=== PATIENT | female | born 1990 | race American Indian/Alaskan Native ===

== ENCOUNTER 2017-08-01 06:06 | Day surgery (SDC) | payer OTHER ==
[2017-08-01] MEDS ORDERED: cefOXitin IV 1 gm in Dextrose 2 GM/100 ML BAG IVPB ONE (09:02)
[2017-08-01] MEDS ORDERED: Bupivacaine HCl 0.5% PF (30 ml) Inj ONE (09:02)
[2017-08-01] MEDS ORDERED: Midazolam 2 MG/2 ML VIAL ONE (09:06)
[2017-08-01] MEDS ORDERED: Propofol 10 mg/ml Inj (20 ML) ONE (09:09)
[2017-08-01] MEDS ORDERED: Rocuronium 10 mg/ml (5 ml) ONE (09:15)
[2017-08-01] MEDS ORDERED: Neostigmine Methylsulfate 3mg/3ml Syringe IV ONE (09:32)
[2017-08-01] MEDS ORDERED: HYDROmorphone 0.5 mg/0.5 ml ISec IVP PRN (09:39)
[2017-08-01 12:36] VITALS: RESP 16
[2017-08-01 15:36] VITALS: BP 96/56; PULSE 88; TEMP 97.6; O2SAT 100
--- NOTE | 2017-08-02 06:39 | OP ---
PROCEDURE DATE: 08/01/2017 PREOPERATIVE DIAGNOSIS: Ovarian cyst. POSTOPERATIVE DIAGNOSES: Fibroid uterus, bilateral polycystic ovaries. FINDINGS: Bilateral polycystic ovaries and a find of 2 cm myoma, tubes are normal. SURGEON: Dr. Tammy Terry. LOT ATTENDANT: Delfino Caban MD ESTIMATED BLOOD LOSS: Less than 1 mL. COMPLICATIONS: Nil. DESCRIPTION OF PROCEDURE: After the risks, benefits, and alternatives of the planned procedures including, but not limited to infection, hemorrhage, deep vein thrombosis, atelectasis, pneumonia, pulmonary embolism, damage to the bladder, damage to the ureter, renal insufficiency, renal failure, wound infection, wound dehiscence, incisional hernia, keloid formation, damage to the large and small intestine, damage to the inferior vena cava and aorta requiring extensive repair, anesthesia complications, electrolyte imbalance, possibility of , fluid overload, cerebral edema, embolism, and other complications that were discussed but are not listed above have been explained to the patient and all her questions were answered. Informed consent was obtained. The patient was taken to the operating room in a stable condition. Under a suitable level of general anesthesia, she was prepped and draped in a sterile fashion after having been placed in a dorsal lithotomy position. A Morales catheter was inserted. Examination under anesthesia revealed a normal-sized uterus anteverted with no adnexal masses. A weighted speculum was inserted into the vagina. The anterior lip of the cervix was grasped using a single-tooth tenaculum. An endocervical curettage was performed and scant tissue was obtained. The uterus was dilated to a #8 Hanks dilator. An endometrial curettage was performed and scant tissue was obtained. A HUMI catheter was inserted into the cervix and insufflated into place. Through a 1 cm umbilical vertical incision, a pneumoperitoneum of 3 L was created. The Veress needle was removed and replaced by a 5 mm trocar and sleeve. Trocar was removed and replaced by a laparoscope, which confirmed the findings as noted above. A 5 mm puncture site was made 3 fingerbreadths above the pubic symphysis through which a 5 mm trocar and sleeve were inserted. Trocar was removed and replaced by Endo Cristian scissors, which was used to resect the fundal myoma, which was submitted for Pathology. At the end of the procedure, peritoneal cavity was irrigated using copious amounts of saline. The saline was evacuated. The suprapubic sleeve was removed under laparoscopic guidance. Abdomen was deflated with carbon dioxide and the umbilical sleeve was removed under laparoscopic guidance. The skin incisions were then closed using 4-0 Vicryl. Estimated blood loss for the procedure was less than 1 mL. Pad, needle, and instrument counts were correct x2. There were no complications. Tammy Terry MD
== END 2017-08-01 15:30 | disposition home or self-care (01) ==
LOC: C.SDS 06:06
PROVIDERS: ATTEND Obstetrics & Gynecology Reproductive Endocrinology
DX: D25.9 Leiomyoma of uterus, unspecified (principal); E28.2 Polycystic ovarian syndrome
CPT/HCPCS: 36415; 58120; 58545; 86850; 86900; 88305; J0694; J1170; J2250; J2704; J2710; J3010